=== PATIENT | female | born 1980 | race Caucasian/White ===

== ENCOUNTER 2016-11-29 07:12 | Emergency (ER) | payer BC ==
[2016-11-29] MEDS ORDERED: Aspirin TAB* 325 MG PO ONE (07:38)
[2016-11-29 08:09] LABS: Hematocrit 37 % (35-47); Hemoglobin 12.6 g/dl (12.0-16.0); Mean Corpuscular HGB Conc 34 g/dl (31-36); Mean Corpuscular Hemoglobin 31 pg (27-31); Mean Corpuscular Volume 90 fL (80-97); Mean Platelet Volume 8 um3 (7.4-10.4); Red Blood Count 4.09 10^6/ul (4.0-5.4); Red Cell Distribution Width 13 % (10.5-15)
[2016-11-29 08:24] LABS: Troponin I 0.01 ng/mL (<0.04)
[2016-11-29 08:25] LABS: Albumin 4.3 g/dL (3.2-5.2); BUN/Creatinine Ratio 18.8 (8-20); Calcium 9.2 mg/dL (8.6-10.3); EGFR African American 125.3 (>60); EGFR Non-African American 97.4 (>60); Globulin 3.1 g/dL (2-4); Total Bilirubin 0.2 mg/dL (0.2-1.0); Total Protein 7.4 g/dL (6.4-8.9)
[2016-11-29] MEDS ORDERED: Iohexol 350* (CONTRAST) 500 ML MDV IV ONE (08:44)
--- NOTE | 2016-11-29 09:14 | RAD ---
HISTORY: Chest pain COMPARISONS: None VIEWS: 4: Frontal dual-energy and lateral views of the chest. FINDINGS: CARDIOMEDIASTINAL SILHOUETTE: The cardiomediastinal silhouette is normal. ANDRES: The andres are normal. PLEURA: The costophrenic angles are sharp. No pleural abnormalities are noted. LUNG PARENCHYMA: The lungs are clear. ABDOMEN: The upper abdomen is clear. There is no subphrenic gas. BONES AND SOFT TISSUES: No bone or soft tissue abnormalities are noted. OTHER: None. IMPRESSION: NO ACTIVE CARDIOPULMONARY DISEASE.
--- NOTE | 2016-11-29 09:27 | RAD ---
INDICATION: Chest pain. Short of breath. Evaluate for pulmonary embolus. COMPARISON: November 29, 2016 chest x-ray TECHNIQUE: Axial source images were obtained from the thoracic inlet to the hemidiaphragms following administration of [address] angiographic technique was utilized. Coronal and sagittal reconstructed images were acquired. CHEST FINDINGS: Neck/thyroid: The visualized neck to include the thyroid appear normal. Chest wall: There are no acute abnormalities of the bony thorax or chest wall. There is no supraclavicular, infraclavicular, or axillary lymphadenopathy. Lungs : There are no pulmonary parenchymal masses or infiltrates. The pulmonary interstitium appears normal. There are no endobronchial lesions. Cardiomediastinal structures: There is no CT evidence of acute pulmonary embolic disease. The heart is normal in size. There is no pericardial effusion. There is no evidence of aortic aneurysm or dissection. There is no mediastinal or hilar adenopathy. The esophagus appears normal. Pleura : There are no pleural-based masses or effusions. Other: None. IMPRESSION: NO CT EVIDENCE OF ACUTE PULMONARY EMBOLIC DISEASE. LUNGS CLEAR.
--- NOTE | 2016-11-29 11:25 | ED ---
Rebecca Winchester Thomas, scribed for Patel Uribe MD on 11/29/16 at 0749 . HPI Chest Pain - HPI Summary HPI Summary: The pt is a 36 y/o F presenting to the ED c/o intermittent CP that suddenly began today at 06:30. She describes the pain as tightness. The pain radiates to her left arm and into her lower chest. In the ED, the pt rates the pain 3/10 but it was 9/10 at its worst. The pain is aggravated by deep breaths and positional change. The pain is not reproducible. It is alleviated by nothing. The patient has treated the pain with nothing [employer]. Pt additionally c/o SOB. Pt denies diaphoresis, nausea, lightheadedness, palpitations, fever, chills, cough , leg pain, leg swelling, and abd pain. The pain began when she was driving on her half-hour commute. She denies feeling sick in the last few days and any recent long car trips. She takes Percocet for her hip and she took it this AM at 05:30. PMHx: congenital hip abnormality. PSHx: three hip reconstructions ( last surgery 2013), hysterectomy (2016). SHx: current smoker, no alcohol use, no illicit drug use. FHx: mitral valve prolapse (mother). She works at the [employer] and is accompanied by her co-worker. - History of Current Complaint Chief Complaint: EDChestPainROMI Time Seen by Provider: 11/29/16 07:23 Hx Obtained From: Patient, Other: - Co-worker is in the room Hx Last Menstrual Period: HAD ABLATION; NO PERIODS Onset/Duration: Started Minutes Ago - onset of CP today at 06:30, Still Present Time of Onset: 06:30 Timing: Intermittent Current Severity: Mild Pain Intensity: 3 Pain Scale Used: 0-10 Numeric Chest Pain Radiates: Yes Chest Pain Radiates To:: Arm - left arm, Other - lower chest Character: Tightness Aggravating Factor(s): Position, Deep Breaths Alleviating Factor(s): Nothing Associated Signs and Symptoms: Positive: Chest Pain, Shortness of Breath. Negative: Fever, Chills, Lightheadedness, Diaphoresis, Nausea, Palpitations, Abdominal Pain, Other: - NEGATIVE: cough, leg pain, leg swelling - Allergy/Home Medications Allergies/Adverse Reactions: Allergies Allergy/AdvReac Type Severity Reaction Status Date / Time Penicillins Allergy Mild Hives Verified 11/29/16 07:15 Sulfa Drugs Allergy Hives Verified 11/29/16 07:15 PMH/Surg Hx/FS Hx/Imm Hx Previously Healthy: No Endocrine/Hematology History: Reports: Hx Anemia - IRON DEFICIENCY Denies: Hx Diabetes, Hx Systemic Lupus Erythematosus, Hx Thyroid Disease Cardiovascular History: Denies: Hx Congestive Heart Failure, Hx Hypercholesterolemia, Hx Hypertension , Hx Pacemaker/ICD, Hx Peripheral Vascular Disease Respiratory History: Denies: Hx Asthma, Hx Chronic Obstructive Pulmonary Disease (COPD) GI History: Denies: Hx Ulcer History: Denies: Hx Dialysis, Hx Renal Disease Musculoskeletal History: Reports: Hx Bursitis, Hx Congenital Bone Abnormalities - Congenital Hip, Other Musculoskeletal History - Right Hip Pain Denies: Hx Arthritis, Hx Rheumatoid Arthritis, Hx Osteoporosis Sensory History: Reports: Hx Contacts or Glasses Denies: Hx Cataracts, Hx Glaucoma, Hx Hearing Aid Opthamlomology History: Reports: Hx Contacts or Glasses Denies: Hx Cataracts, Hx Glaucoma Neurological History: Denies: Hx Headaches, Hx Seizures, Hx Transient Ischemic Attacks (TIA) Psychiatric History: Denies: Hx Anxiety, Hx Depression, Hx Panic Disorder - Cancer History Hx Chemotherapy: No - Surgical History Surgery Procedure, Year, and Place: RIGHT HIP SURGERY TO CORRECT CONGENTIAL DEFORMATION X3 LAST ONE 11/11 [place]; GALLBLADDER 04/24/2014 @ [facility]. 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 Negative: Palpitations Negative: Cough Negative: Abdominal Pain, Nausea Negative: Other - NEGATIVE: leg pain, leg swelling Neurological: Other - NEGATIVE: lightheadedness All Other Systems Reviewed And Are Negative: Yes Physical Exam Triage Information Reviewed: Yes Vital Signs On Initial Exam: Initial Vitals Temp Pulse Resp BP Pulse Ox 97.3 F 84 16 143/80 100 11/29/16 07:15 11/29/16 07:15 11/29/16 07:15 11/29/16 07:15 11/29/16 07:15 Vital Signs Reviewed: Yes Appearance: Positive: Well-Appearing, No Pain Distress Skin: Positive: Skin Color Reflects Adequate Perfusion Head/Face: Positive: Normal Head/Face Inspection Eyes: Positive: EOMI ENT: Positive: Normal ENT inspection Neck: Positive: Nontender Respiratory/Lung Sounds: Positive: Clear to Auscultation, Breath Sounds Present Cardiovascular: Positive: RRR. Negative: Murmur Abdomen Description: Positive: Nontender Musculoskeletal: Positive: Normal, Strength/ROM Intact Neurological: Positive: Sensory/Motor Intact, Alert, Oriented to Person Place, Time, CN Intact II-III Psychiatric: Positive: Normal - [place] Coma Scale Best Eye Response: 4 - Spontaneous Best Motor Response: 6 - Obeys Commands Best Verbal Response: 5 - Oriented Diagnostics - Vital Signs Vital Signs Temp Pulse Resp BP Pulse Ox 11/29/16 07:15 97.3 F 84 16 143/80 100 - Laboratory Result Diagrams: 11/29/16 07:00 11/29/16 07:59 Lab Statement: Any lab studies that have been ordered have been reviewed, and results considered in the medical decision making process. - Radiology CXR Xray Interpretation: No Acute Changes - CXR show no active cardiopulmonary disease. ED physician has reviewed this report and agrees. Radiology Interpretation Completed By: Radiologist - CT CTA Chest/Thorax CT Interpretation: No Acute Changes - CTA Chest/Thorax shows NO CT EVIDENCE OF ACUTE PULMONARY EMBOLIC DISEASE. LUNGS CLEAR. ED physician has reviewed this report and agrees. CT Interpretation Completed By: Radiologist - EKG 07:21 Cardiac Rate: NL - 82 BPM EKG Interpretation: No STEMI 10:46 Cardiac Rate: NL - 63 BPM EKG Interpretation: No STEMI Re-Evaluation - Re-Evaluation First Eval Re-Evaluation Time: 09:55 Change: Improved Comment: The patient reports pain with laughing and movement in her upper sternal area. She is comfortable and in no distress at this point. Chest Pain Course/Dx - Course Assessment/Plan: The pt is a 36 y/o F with intermittent tight CP with sudden onset today at 06:30 with radiation into her left arm. The pain is aggravated by deep breaths and positional change. Pt additionally c/o SOB but no other symptoms. The patent was given ASA. Bloodwork shows D-dimer less than 200, first troponin 0.00 and second troponin 0.00. EKG shows no STEMI. CXR show no active cardiopulmonary disease. ED physician has reviewed this report and agrees. CTA Chest/Thorax shows NO CT EVIDENCE OF ACUTE PULMONARY EMBOLIC DISEASE. LUNGS CLEAR. ED physician has reviewed this report and agrees. The patient has musculoskeletal chest pain that is clearly reproducible with laughing and moving into specific positions. - Diagnoses Provider Diagnoses: Chest wall pain, Hypertension Discharge - Discharge Plan Condition: Good Disposition: HOME Patient Education Materials: Chest Wall Pain (ED), Hypertension (ED) Referrals: Andres Wallace MD [Primary Care Provider] - 2 Days The documentation as recorded by the Rebecca mchugh Thomas accurately reflects the service I personally performed and the decisions made by , Patel Uribe MD.
[2016-11-29 11:53] VITALS: BP 143/93
== END 2016-11-29 11:53 | disposition home or self-care (01) ==
LOC: ED 07:12
DX: R07.89 Other chest pain (principal); I10 Essential (primary) hypertension; R06.02 Shortness of breath; F17.210 Nicotine dependence, cigarettes, uncomplicated
CPT/HCPCS: 36415; 71020; 71275; 80053; 83605; 84484; 85025; 85379; 85610; 93005; 99284; Q9967